=== PATIENT | male | born 1990 | race Caucasian/White ===

== ENCOUNTER 2018-01-08 09:15 | Emergency (ER) | payer BC, SELFPAY ==
[2018-01-08] MEDS ORDERED: NA CHLORIDE 0.9% 1,000 ML ONE (10:18)
[2018-01-08 10:20] LABS: Absolute Lymphocytes (CBC) 0.6 K/uL (0.7-4.9); Absolute Monocytes 0.8 K/uL (0.1-1.3); Absolute Neutrophil 15.9 K/uL (1.8-8.0); Basophils % 0.3 % (0-1.3); Eosinophils % 0.1 % (0-4.4); Hematocrit 42.1 % (39.6-49.0); Lymphocytes % 3.5 % (15.3-44.8); MCH 30.9 pg (27.0-35.0); MCV 89.5 fL (80-100); MPV 8.4 fL (7.6-11.3); Monocytes % 4.6 % (3.3-12.3)
[2018-01-08 10:34] LABS: ALT/SGPT 28 U/L (12-78); AST/SGOT 11 U/L (15-37); Albumin 4.4 g/dL (3.4-5.0); Alkaline Phosphatase 94 U/L (45-117); BUN Blood Urea Nitrogen 7 mg/dL (7-18); Bicarbonate 28 mmol/L (21-32); Bilirubin Direct 0.2 mg/dL (0-0.2); Bilirubin Total 0.5 mg/dL (0.2-1.0); Glucose Level 105 mg/dL (74-106); Lipase 101 U/L (73-393); Potassium 3.7 mmol/L (3.5-5.1); Protein, Total 7.5 g/dL (6.4-8.2); Sodium Level 138 mmol/L (136-145)
[2018-01-08] MEDS ORDERED: KETOROLAC 30 MG/ML INJ ONE (11:06)
[2018-01-08 11:12] LABS: Blood Morphology Comment NOT SEEN (NOT SEEN); Platelet Estimate ADEQ; Urine White Blood Cell Casts OK
--- NOTE | 2018-01-08 11:26 | RAD REPORT ---
EXAM DESCRIPTION: CTAbdomen Pelvis W Contrast - 01/08/2018 11:10 am CLINICAL HISTORY: Abdominal pain. ABD PAIN COMPARISON: <Comparisons> TECHNIQUE: Biphasic CT imaging of the abdomen and pelvis was performed with 100 ml non-ionic IV cont rast. All CT scans are performed using dose optimization technique as appropriate and may include automated exposure control or mA/KV adjustment according to patient size. FINDINGS: The lung bases are clear. The liver, spleen, pancreas, adrenal glands and kidneys are within normal limits. No bowel obstruction, free air, free fluid or abscess. There are areas of mild colonic wall thickenin g seen greatest in the rectosigmoid colon. This likely indicates nonspecific colitis. No pneumatosis coli identified. The appendix is normal. No evidence of significant lymphadenopathy. No suspicious bony findings. IMPRESSION: Mild nonspecific colitis, greatest involving rectosigmoid. Normal appendix.
[2018-01-08] MEDS ORDERED: CIPROFLOXACIN HCL 500 MG TAB ONE (11:59)
[2018-01-08] MEDS ORDERED: ACETAMINOPHEN 500 MG TAB ONE (11:59)
[2018-01-08] MEDS ORDERED: METRONIDAZOLE 500mg IVPB 500 MG/100 ML BAG IV ONE (12:00)
--- NOTE | 2018-01-08 12:38 | EDPHYS ---
Physician Documentation [facility] Name: Waylon Brown Age: 27 yrs Sex: Male : 1990 Arrival Date: 01/08/2018 Time: 09:18 Bed 17 Private MD: Unknown, Unknown ED Physician Vinicius Macedo HPI: 01/08 10:00 This 27 yrs old Male presents to ER via Ambulatory with complaints of Fever, pm1 Headache, Abdominal Pain. 10:00 The patient presents with abdominal pain in the lower abdomen. Onset: The pm1 symptoms/episode began/occurred last night. The symptoms do not radiate. Associated signs and symptoms: Pertinent positives: diarrhea, subjective fever and headache, Pertinent negatives: nausea and vomiting, chest pain, constipation, dysuria, shortness of breath. The symptoms are described as crampy. Modifying factors: The symptoms are alleviated by nothing, the symptoms are aggravated by nothing. Severity of pain: in the emergency department the pain has resolved is a 0 / 10. The patient has not experienced similar symptoms in the past. abdominal pain and diarrhea onset at same time last night. Historical: - Allergies: : NKA; iw - Home Meds: : Adderall XR Oral [Active]; iw - PMHx: : None; iw - PSHx: :29 Tonsillectomy; iw - Immunization history:: Adult Immunizations not up to date. - Social history:: Smoking status: Patient uses tobacco products, smokes one pack cigarettes per day. - Ebola Screening: : Patient negative for fever greater than or equal to 101.5 degrees Fahrenheit, and additional compatible Ebola Virus Disease symptoms Patient denies exposure to infectious person Patient denies travel to an Ebola-affected area in the 21 days before illness onset No symptoms or risks identified at this time. ROS: 10:00 Constitutional: Negative for fever, chills, and weight loss, Eyes: Negative for injury, pm1 pain, redness, and discharge, ENT: Negative for injury, pain, and discharge, Neck: Negative for injury, pain, and swelling, Cardiovascular: Negative for chest pain, palpitations, and edema, Respiratory: Negative for shortness of breath, cough, wheezing, and pleuritic chest pain, Back: Negative for injury and pain, MS/Extremity: Negative for injury and deformity, Skin: Negative for injury, rash, and discoloration. 10:00 Abdomen/GI: Positive for abdominal pain, diarrhea, Negative for nausea and vomiting. Exam: 10:00 Constitutional: This is a well developed, well nourished patient who is awake, alert, pm1 and in no acute distress. Head/Face: Normocephalic, atraumatic. Eyes: Pupils equal round and reactive to light, extra-ocular motions intact. Lids and lashes normal. Conjunctiva and sclera are non-icteric and not injected. Cornea within normal limits. Periorbital areas with no swelling, redness, or edema. ENT: Nares patent. No nasal discharge, no septal abnormalities noted. Tympanic membranes are normal and external auditory canals are clear. Oropharynx with no redness, swelling, or masses, exudates, or evidence of obstruction, uvula midline. Mucous membranes moist. Neck: Trachea midline, no thyromegaly or masses palpated, and no cervical lymphadenopathy. Supple, full range of motion without nuchal rigidity, or vertebral point tenderness. No Meningismus. Chest/axilla: Normal chest wall appearance and motion. Nontender with no deformity. No lesions are appreciated. Cardiovascular: Regular rate and rhythm with a normal S1 and S2. No gallops, murmurs, or rubs. Normal PMI, no JVD. No pulse deficits. Respiratory: Lungs have equal breath sounds bilaterally, clear to auscultation and percussion. No rales, rhonchi or wheezes noted. No increased work of breathing, no retractions or nasal flaring. Abdomen/GI: Soft, non-tender, with normal bowel sounds. No distension or tympany. No guarding or rebound. No evidence of tenderness throughout. Back: No spinal tenderness. No costovertebral tenderness. Full range of motion. Skin: Warm, dry with normal turgor. Normal color with no rashes, no lesions, and no evidence of cellulitis. MS/ Extremity: Pulses equal, no cyanosis. Neurovascular intact. Full, normal range of motion. 10:00 Neuro: Orientation: is normal, Cranial nerves: CN II- XII are normal as tested, Motor: moves all fours, Gait: is steady, at a normal pace, without difficulty. Vital Signs: 09:29 BP 117 / 78; Pulse 111; Resp 16 S; Temp 99.7(TE); Pulse Ox 98% on R/A; Weight 65.77 kg; iw Height 5 ft. 8 in. (172.72 cm); Pain 0/10; 10:21 BP 117 / 70; Pulse 98; Resp 18; Pulse Ox 99% on R/A; Pain 0/10; em 11:00 BP 112 / 64; Pulse 108; Resp 18; Temp 99.3(O); Pulse Ox 99% on R/A; Pain 0/10; em 12:02 BP 116 / 67; Pulse 112; Resp 15; Pulse Ox 99% on R/A; em 12:47 BP 115 / 62; Pulse 105; Resp 16; Pulse Ox 99% on R/A; em 09:29 Body Mass Index 22.05 (65.77 kg, 172.72 cm) iw MDM: 09:49 Patient medically screened. pm1 12:36 Data reviewed: vital signs. Data interpreted: Pulse oximetry: on room air is 99 %. pm1 Interpretation: normal. Counseling: I had a detailed discussion with the patient and/or guardian regarding: the historical points, exam findings, and any diagnostic results supporting the discharge/admit diagnosis, lab results, radiology results, the need for outpatient follow up, to return to the emergency department if symptoms worsen or persist or if there are any questions or concerns that arise at home. 01/08 09:54 Order name: Basic Metabolic Panel; Complete Time: 10:52 pm1 01/08 09:54 Order name: CBC with Diff; Complete Time: 11:30 pm1 01/08 09:54 Order name: Creatinine for Radiology; Complete Time: 10: pm1 01/08 09:54 Order name: Hepatic Function; Complete Time: 10:52 pm1 01/08 09:54 Order name: Lipase; Complete Time: 10:52 pm1 01/08 09:55 Order name: Strep; Complete Time: 11:30 pm1 01/08 09:55 Order name: Flu; Complete Time: 11:30 pm1 01/08 09:55 Order name: Cochran Screen Profile; Complete Time: 10:52 pm1 01/08 10:23 Order name: CBC Smear Scan; Complete Time: 11:30 EDMS 01/08 10:53 Order name: CT Abd/Pelvis - W/Contrast: IV contrast only; Complete Time: 11:30 pm1 10/12 11:05 Order name: Throat Culture EDMS 10 09:54 Order name: IV Saline Lock; Complete Time: 09:58 pm1 10 09:54 Order name: Labs collected and sent; Complete Time: 09:58 pm1 01/08 09:54 Order name: Urine Dipstick-Ancillary (obtain specimen); Complete Time: 10:10 pm1 Administered Medications: 10:20 Drug: NS 0.9% 1000 ml Route: IV; Rate: 1000 ml; Site: right antecubital; em 10:30 Follow up: IV Status: Completed infusion; IV Intake: 1000ml em 11:03 Drug: TORadol 30 mg Route: IVP; Site: right antecubital; iw 12:00 Follow up: Response: No adverse reaction; Pain is unchanged, physician notified em 12:00 Drug: Flagyl 500 mg Volume: 100 ml; Route: IVPB; Rate: 200 ml/hr; Infused Over: 30 em mins; Site: right antecubital; 12:00 Drug: Cipro 500 mg Route: PO; em 12:48 Follow up: Response: No adverse reaction em 12:00 Drug: Tylenol 1000 mg Route: PO; em 12:49 Follow up: Response: No adverse reaction em Disposition: 01/09 13:07 Co-signature as Attending Physician, Viniicus Macedo MD I agree with the assessment and kdr plan of care. Disposition: 01/08/18 12:37 Discharged to Home. Impression: Colitis, Other abdominal pain. - Condition is Stable. - Discharge Instructions: Abdominal Pain, Adult, Food Choices to Help Relieve Diarrhea, Adult, Diarrhea, Adult, Colitis. - Prescriptions for Flagyl 500 mg Oral Tablet - take 1 tablet by ORAL route every 8 hours for 10 days; 30 tablet. Cipro 500 mg Oral Tablet - take 1 tablet by ORAL route every 12 hours for 10 days; 20 tablet. Bentyl 20 mg Oral Tablet - take 1 tablet by ORAL route every 6 hours As needed; 20 tablet. - Work release form, Family Work Release, Medication Reconciliation Form, Thank You Letter, Antibiotic Education, Prescription Opioid Use form. - Follow up: Emergency Department; When: As needed; Reason: Worsening of condition. Follow up: Private Physician; When: 2 - 3 days; Reason: Recheck today's complaints, Continuance of care, Re-evaluation by your physician. - Problem is new. - Symptoms have improved. Signatures: Dispatcher [employer] EDMS Vinicius Macedo MD MD kdr Santos Carter, PROMOTIONS FIRM ACCOUNTS MANAGER PROMOTIONS FIRM ACCOUNTS MANAGER em Anna Cardona RN RN iw Jose Diggs, TRAV LABORER PIPELINE pm1 Corrections: (The following items were deleted from the chart) 01/08 12:38 12:37 01/08/2018 12:37 Discharged to Home. Impression: Mild rectosigmoid colitis. pm1 Condition is Stable. Forms are Medication Reconciliation Form, Thank You Letter, Antibiotic Education, Prescription Opioid Use. Follow up: Emergency Department; When: As needed; Reason: Worsening of condition. Follow up: Private Physician; When: 2 - 3 days; Reason: Recheck today's complaints, Continuance of care, Re-evaluation by your physician. Problem is new. Symptoms have improved. pm1 12:38 12:38 01/08/2018 12:37 Discharged to Home. Impression: Colitis. Condition is Stable. pm1 Forms are Medication Reconciliation Form, Thank You Letter, Antibiotic Education, Prescription Opioid Use. Follow up: Emergency Department; When: As needed; Reason: Worsening of condition. Follow up: Private Physician; When: 2 - 3 days; Reason: Recheck today's complaints, Continuance of care, Re-evaluation by your physician. Problem is new. Symptoms have improved. pm1 13:15 12:38 01/08/2018 12:37 Discharged to Home. Impression: Colitis; Other abdominal pain. em Condition is Stable. Forms are Medication Reconciliation Form, Thank You Letter, Antibiotic Education, Prescription Opioid Use. Follow up: Emergency Department; When: As needed; Reason: Worsening of condition. Follow up: Private Physician; When: 2 - 3 days; Reason: Recheck today's complaints, Continuance of care, Re-evaluation by your physician. Problem is new. Symptoms have improved. pm1
--- NOTE | 2018-01-08 12:38 | ER ---
Nurse's Notes [facility] Name: Waylon Brown Age: 27 yrs Sex: Male : 1990 Arrival Date: 01/08/2018 Time: 09:18 Bed 17 Private MD: Unknown, Unknown Diagnosis: Colitis;Other abdominal pain Presentation: 01/08 09:26 Presenting complaint: Patient states: fever, chills, body aches since 0530 this iw morning, approx 15 episodes of diarrhea since 1130 last night, also c/o lower abd pain when he feels the urge to have a BM. Transition of care: patient was not received from another setting of care. Onset of symptoms was January 08, 2018. Risk Assessment: Do you want to hurt yourself or someone else? Patient reports no desire to harm self or others. Initial Sepsis Screen: Does the patient meet any 2 criteria? No. Patient's initial sepsis screen is negative. Does the patient have a suspected source of infection? No. Patient's initial sepsis screen is negative. Care prior to arrival: Medication(s) given: Tylenol. :26 Method Of Arrival: Ambulatory iw 09:26 Acuity: HARMAN 3 iw Triage Assessment: 10:15 Headache History: Denies prior headaches. General: Appears in no apparent distress. em comfortable, Behavior is calm, cooperative. Pain: Pain currently is 4 out of 10 on a pain scale. Pain began 1 day ago. Also complains of no other associated symptoms. Historical: - Allergies: 09: NKA; iw - Home Meds: : Adderall XR Oral [Active]; iw - PMHx: : None; iw - PSHx: : Tonsillectomy; iw - Immunization history:: Adult Immunizations not up to date. - Social history:: Smoking status: Patient uses tobacco products, smokes one pack cigarettes per day. - Ebola Screening: : Patient negative for fever greater than or equal to 101.5 degrees Fahrenheit, and additional compatible Ebola Virus Disease symptoms Patient denies exposure to infectious person Patient denies travel to an Ebola-affected area in the 21 days before illness onset No symptoms or risks identified at this time. Screenin:21 Abuse screen: Denies threats or abuse. Nutritional screening: No deficits noted. em Tuberculosis screening: No symptoms or risk factors identified. Fall Risk None identified. Assessment: 10:21 General: Appears in no apparent distress. comfortable, Behavior is calm, cooperative. em Pain: Denies pain. Neuro: Level of Consciousness is awake, alert, obeys commands, Oriented to person, place, time, situation, Reports headache. Cardiovascular: Capillary refill < 3 seconds Patient's skin is warm and dry. Respiratory: Airway is patent Respiratory effort is even, unlabored, Respiratory pattern is regular, symmetrical. GI: Abdomen is flat, Abd is soft and non tender X 4 quads. Reports diarrhea, nausea. : No signs and/or symptoms were reported regarding the genitourinary system. EENT: No signs and/or symptoms were reported regarding the EENT system. Derm: Skin is intact, Skin is pink, warm \T\ dry. Musculoskeletal: Capillary refill < 3 seconds, Range of motion: intact in all extremities. 10:30 General: The previous assessment is accurate. Call light remains within reach. . ss 11:03 Reassessment: Patient appears in no apparent distress at this time. Patient and/or em family updated on plan of care and expected duration. Pain level reassessed. Patient is alert, oriented x 3, equal unlabored respirations, skin warm/dry/pink. c/o headache and chills, temp 99.3 oral, provider notified, new medication orders received. 12:00 Reassessment: Patient appears in no apparent distress at this time. Patient and/or em family updated on plan of care and expected duration. Pain level reassessed. Patient is alert, oriented x 3, equal unlabored respirations, skin warm/dry/pink. 12:50 Reassessment: Patient appears in no apparent distress at this time. Patient and/or em family updated on plan of care and expected duration. Pain level reassessed. Patient is alert, oriented x 3, equal unlabored respirations, skin warm/dry/pink. pending completion of IV antibiotics to be discharged Patient states feeling better. Vital Signs: 09:29 BP 117 / 78; Pulse 111; Resp 16 S; Temp 99.7(TE); Pulse Ox 98% on R/A; Weight 65.77 kg; iw Height 5 ft. 8 in. (172.72 cm); Pain 0/10; 10:21 BP 117 / 70; Pulse 98; Resp 18; Pulse Ox 99% on R/A; Pain 0/10; em 11:00 BP 112 / 64; Pulse 108; Resp 18; Temp 99.3(O); Pulse Ox 99% on R/A; Pain 0/10; em 12:02 BP 116 / 67; Pulse 112; Resp 15; Pulse Ox 99% on R/A; em 12:47 BP 115 / 62; Pulse 105; Resp 16; Pulse Ox 99% on R/A; em 09:29 Body Mass Index 22.05 (65.77 kg, 172.72 cm) iw ED Course: 09:18 Patient arrived in ED. mr 09:18 Unknown, Unknown is Private Physician. mr 09:28 Triage completed. iw 09:29 Arm band placed on. iw 09:38 Santos Carter LVN is Primary Nurse. em 09:44 Jose Diggs NP is PHCP. pm1 09:44 Vinicius Macedo MD is Attending Physician. pm1 09:58 Initial lab(s) drawn, by me, sent to lab. Flu and/or RSV swab sent to lab. Strep swab jb1 sent to lab. Inserted saline lock: 22 gauge in right antecubital area, using aseptic technique. Blood collected. 10:21 Patient has correct armband on for positive identification. Placed in gown. Bed in low em position. Call light in reach. Adult w/ patient. 10:21 No provider procedures requiring assistance completed. em 11:07 CT completed. Patient tolerated procedure well. Patient moved to CT via wheelchair. vr Patient moved back from CT. 11:10 CT Abd/Pelvis - W/Contrast: IV contrast only In Process Unspecified. EDMS 13:13 IV discontinued, intact, bleeding controlled, No redness/swelling at site. Pressure em dressing applied. Administered Medications: 10:20 Drug: NS 0.9% 1000 ml Route: IV; Rate: 1000 ml; Site: right antecubital; em 10:30 Follow up: IV Status: Completed infusion; IV Intake: 1000ml em 11:03 Drug: TORadol 30 mg Route: IVP; Site: right antecubital; iw 12:00 Follow up: Response: No adverse reaction; Pain is unchanged, physician notified em 12:00 Drug: Flagyl 500 mg Volume: 100 ml; Route: IVPB; Rate: 200 ml/hr; Infused Over: 30 em mins; Site: right antecubital; 12:00 Drug: Cipro 500 mg Route: PO; em 12:48 Follow up: Response: No adverse reaction em 12:00 Drug: Tylenol 1000 mg Route: PO; em 12:49 Follow up: Response: No adverse reaction em Intake: 10:30 IV: 1000ml; Total: 1000ml. em Outcome: 12:37 Discharge ordered by MD. pm1 13:13 Discharged to home ambulatory, with family. em 13:13 Condition: good 13:13 Discharge instructions given to patient, Instructed on discharge instructions, follow up and referral plans. medication usage, Demonstrated understanding of instructions, follow-up care, medications, Prescriptions given X 3. 13:15 Patient left the ED. em Signatures: Dispatcher [employer] EDMS Devin Restrepo1 Mccracken, Jovanna mr Carter, Santos, BREAD MOLDER BREAD MOLDER em Anna Cardona RN RN iw Smirch, Shelby, RN RN ss Davis, Victoria vr Marinas, Patrick, OCCUPATIONAL SAFETY SPECIALIST OCCUPATIONAL SAFETY SPECIALIST pm1 Corrections: (The following items were deleted from the chart) 12:03 11:00 BP 117 / 70; Pulse 108bpm; Resp 18bpm; Pulse Ox 99% RA; Temp 99.3F Oral; Pain em 0/10; em 13:12 10:21 GI: Abdomen is flat, Abd is soft and non tender X 4 quads. em em
== END 2018-01-08 13:15 | disposition home or self-care (01) ==
LOC: ER 09:15
DX: K52.9 Noninfective gastroenteritis and colitis, unspecified (principal); F17.210 Nicotine dependence, cigarettes, uncomplicated
CPT/HCPCS: 36415; 74177; 80048; 80076; 83690; 85025; 86308; 87070; 87081; 87804; 96374; 96375; 99284; J7030; Q9967